=== PATIENT | male | born 1995 | race Caucasian/White ===

== ENCOUNTER 2016-08-28 03:11 | Emergency (ER) | payer OTHER ==
[2016-08-28 04:07] LABS: BASOPHIL % 0.2 % (0-2); PLATELET COUNT 172 x10^3mcL (130-400); RED CELL DISTRIBUTION WIDTH 12.2 % (11.5-14.5)
[2016-08-28 04:35] LABS: CK-MB 23.3 ng/mL (0-3.6)
[2016-08-28 04:46] LABS: CALCIUM 8.5 mg/dL (8.5-10.1); CARBON DIOXIDE 30.8 mmol/L (21-32); CHLORIDE SERUM 103 mmol/L (98-107); CREATININE SERUM 0.9 mg/dL (0.7-1.3); GFR1 > 60 mL/min; GLUCOSE SERUM 117 mg/dL (74-106); POTASSIUM SERUM 4.6 mmol/L (3.5-5.1); SODIUM SERUM 138 mmol/L (136-145)
[2016-08-28 04:50] LABS: ALBUMIN 3.6 g/dL (3.4-5.0); ALKALINE PHOSPHATASE 57 U/L (46-116); ALT/SGPT 24 U/L (16-63); AST/SGOT 39 U/L (15-37); BILIRUBIN TOTAL 0.53 mg/dL (0.20-1.00); TOTAL PROTEIN, SERUM 7.1 g/dL (6.4-8.2)
[2016-08-28 06:02] VITALS: BP 130/87
== END 2016-08-28 06:02 | disposition short-term general hospital (02) ==
LOC: ED 03:11
PROVIDERS: Emergency Medicine
DX: I24.9 Acute ischemic heart disease, unspecified (principal); J18.9 Pneumonia, unspecified organism
CPT/HCPCS: J0696; J1644; J7030; J7613; J7644; Q9967